=== PATIENT | male | born 1955 | race African-American/Black ===

== ENCOUNTER 2016-12-12 06:04 | Day surgery (SDC) | payer BC ==
[2016-12-09 10:27] LABS: HEMATOCRIT 35.1 % (40.0-51.0); HEMOGLOBIN 10.6 g/dL (13.6-17.8)
[2016-12-09 10:40] LABS: BUN (BLOOD UREA NITROGEN) 16 MG/DL (6-23); CALCIUM, SERUM 8.6 MG/DL (8.5-10.4); CHLORIDE, SERUM 103 MMOL/L (96-112); CO2 (CARBON DIOXIDE) 30 MMOL/L (24-34); CREATININE 1.09 MG/DL (0.70-1.30); GFR AFRICAN AMERICAN 83 ML/MIN (>=60); GFR NON AFRICAN AMERICAN 72 ML/MIN (>=60); GLUCOSE, SERUM 335 MG/DL (60-99); POTASSIUM, SERUM 4.3 MMOL/L (3.5-5.3); SODIUM, SERUM 139 MMOL/L (135-148)
--- NOTE | ~2016-12-12 | OP ---
Record Of Operation [facility] [address] [facility] [place]. [address] NAME: SHER FRAGA : 51 STATUS : REG [facility] [place] PAT#: [id number] AGE: 61 ADM/REG DATE : 12/12/16 MR#: [id number] REPORT SERV DATE: 12/12/16 DICTATED BY: GUILLERMO CALVILLO DATE: 12/12/16 REPORT STATUS : Draft TRANSCRIBED BY: MODL DATE: 12/12/16 DATE OF PROCEDURE: 12/12/2016 PREOPERATIVE DIAGNOSES: 1. Malfunctioning voice prosthesis. 2. Squamous cell carcinoma of the larynx. POSTOPERATIVE DIAGNOSES: 1. Malfunctioning voice prosthesis. 2. Squamous cell carcinoma of the larynx. PROCEDURES: 1. Rigid esophagoscopy. 2. Bougie dilation in the esophageal stricture. 3. Placement of Provox 2, 12.5 mm voice prosthesis. SURGEON: Guillermo Calvillo M.D. ANESTHESIA: General. COMPLICATIONS: None. COUNTS: All counts were correct following the procedure. ESTIMATED BLOOD LOSS: Minimal. PREOPERATIVE INFORMED CONSENT: We discussed the risks and benefits of the surgery including, but not limited to bleeding, infection, possible esophageal perforation, possible infection, and possible ; he understands the risks and benefits of the surgery, and consent is on the chart. DESCRIPTION OF PROCEDURE: The patient was brought to the operative suite, placed on the operating room table in supine position. General endotracheal anesthesia was initiated without incident. The moistened gauze was placed on the upper gingiva and a rigid esophagoscope was carefully inserted in the oral cavity down to the esophageal inlet. There was noted to be stricture at the esophageal inlet. Then, using a tapered unguided bougie, it was carefully inserted into the esophageal inlet under direct vision, it was dilated from up to a 44-[place] voice prosthesis. Following this, the esophagoscope was advanced to just at the level of the voice prosthesis. The old problematic voice prosthesis was removed through the tracheal stoma. A new 12.5 mm voice prosthesis was inserted through the tracheoesophageal puncture site under direct vision using the hand sander tool. Once in position, the voice prosthesis was double checked to be in good position and the esophagoscope was removed. The patient was awakened from anesthesia, taken to the recovery room in stable condition. Record Of Operation [facility] [address] [facility] [place]. [address] NAME: SHER FRAGA : 51 STATUS : REG [facility] [place] PAT#: [id number] AGE: 61 ADM/REG DATE : 12/12/16 MR#: [id number] REPORT SERV DATE: 12/12/16 DICTATED BY: GUILLERMO CALVILLO DATE: 12/12/16 REPORT STATUS : Draft TRANSCRIBED BY: JOSEY DATE: 12/12/16 SOHAIL/JOSEY Guillermo Calvillo M.D. / [id number] CC: Moon Phillip
[~2016-12-12 06:04] MED LIST: ACET500CAP PO; ALBUTEROL INH; ASAB PO; ASABAYER PO; ATEN50 PO; CAT1 PO; IRON325 MG PO; LANTUS SC; Lantus Inj IJ; MUCUS RELIEF OR; MULTIPLE VIT PO; NEXIUM40 PO; NORCO1 TAB PO; NOVOLOG SC; OMEGA XL PO; PERCOCET1 TA4 PO; PRIN20 PO; PROAIR HFA INH; PROBIOTIC PO; TYLENOL SIN1 OR; VENTOLIN HFA INH; VITAMIN B-2100 MG PO
== END 2016-12-12 15:57 | disposition home or self-care (01) ==
LOC: SDC 06:04
PROVIDERS: Otolaryngology
PROC: 0DJ08ZZ Inspection of Upper Intestinal Tract, Via Natural or Artificial Opening Endoscopic (ICD-10-PCS; 2016-12-12)
PROC: 0CHY8BZ Insertion of Airway into Mouth and Throat, Via Natural or Artificial Opening Endoscopic (ICD-10-PCS; 2016-12-12)
PROC: 0D758ZZ Dilation of Esophagus, Via Natural or Artificial Opening Endoscopic (ICD-10-PCS; principal; 2016-12-12 07:15)
DX: T85.698A Other mechanical complication of other specified internal prosthetic devices, implants and grafts, initial encounter (principal); J44.9 Chronic obstructive pulmonary disease, unspecified; C32.9 Malignant neoplasm of larynx, unspecified; K22.2 Esophageal obstruction; J45.909 Unspecified asthma, uncomplicated; E11.9 Type 2 diabetes mellitus without complications; I10 Essential (primary) hypertension; Z98.890 Other specified postprocedural states; Z79.82 Long term (current) use of aspirin; Z79.899 Other long term (current) drug therapy
CPT/HCPCS: 80048; 82962; 85014; 85018; 93005; J2250; J2405; J2710; J3010